=== PATIENT | female | born 1945 | race Caucasian/White ===

== ENCOUNTER 2017-03-30 13:10 | Emergency (ER) | payer OTHER ==
[~2017-03-30] VITALS: Ht 167.6 cm; Wt 97.7 kg
[~2017-03-30 13:10] MED LIST: ALPRAZOLAM1 MG PO; AMLODIPINE BESYL5 MG PO; ARTHROTEC 751 TABLET PO; ASPIRIN EC325 MG PO; ATORVASTATIN CA40 MG PO; BENTYL20 MG PO; CENTRUM COMPLE1 EACH PO; CIPRO500 MG PO; COMBIGAN O20 DROP/5 BOTH EYES; DICLOFENAC-MIS1 EAC3 PO; FENOFIBRATE200 M1 PO; FLAGYL500 MG PO; GLIMEPIRIDE2 MG PO; LEXAPRO10 MG PO; LISINOPRIL20 MG PO; LORTAB 5-325 M1 EACH PO; LUMIGAN 0.50 DROP/22 BOTH EYES; METFORMIN HCL500 MG PO; NORCO 5/3251 TABLET PO; PREDNISONE20 MG PO; TRAMADOL HCL50 MG PO; VENTOLIN HFA18 GM IH; ZOFRAN ODT4 MG PO; ZOLPIDEM TARTRA10 MG PO
[2017-03-30 13:16] VITALS: BP 139/109
[2017-03-30] MEDS ORDERED: INDOCIN50 MG PO (14:52)
[2017-03-30] MEDS ORDERED: PERCOCET 5/31 TABLET PO (14:52)
== END 2017-03-30 15:07 | disposition home or self-care (01) ==
LOC: EME 13:10
DX: M79.89 Other specified soft tissue disorders (principal); G89.29 Other chronic pain; M19.071 Primary osteoarthritis, right ankle and foot; E11.9 Type 2 diabetes mellitus without complications; I10 Essential (primary) hypertension; Z79.84 Long term (current) use of oral hypoglycemic drugs
CPT/HCPCS: 73610; 99281; 99283; J1885

== ENCOUNTER 2017-08-03 17:00 | Emergency (ER) | payer OTHER ==
[~2017-08-03] VITALS: Ht 167.6 cm; Wt 95.4 kg
[~2017-08-03 17:00] MED LIST changes: +INDOCIN50 MG PO; +PERCOCET 5/31 TABLET PO
[2017-08-03 17:29] LABS: HEMATOCRIT 46.9 % (36.0-46.0); MCH 32.3 PG (29.0-34.0); MCHC 34.5 G/DL (30.0-36.0); MCV 93.6 FL (83-99); MEAN PLAT.VOLUME 11.6 uM^3 (9.5-12.4); PLATELET COUNT 246 K/uL (156-360); RBC DIS.WIDTH-CV 15.2 % (11.8-14.6); RBC DIS.WIDTH-SD 51.9 % (39-53); RED BLOOD COUNT 5.01 M/uL (3.80-5.20); WHITE BLOOD COUNT 8.7 K/uL (4.1-10.2)
[2017-08-03 17:40] LABS: CHLORIDE 101 mEq/L (99-109); POTASSIUM 4.2 mEq/L (3.7-5.4); SODIUM 138 mEq/L (136-147)
[2017-08-03 17:42] LABS: GLUCOSE 245 mg/dL (70-99)
[2017-08-03 17:43] LABS: ANION GAP 15 MEQ/L (2-14)
[2017-08-03 17:44] LABS: TOTAL BILIRUBIN 0.3 mg/dL (0.0-1.0)
[2017-08-03 17:46] LABS: ALKALINE PHOSPHATASE 56 IU/L (3-129); GFR ESTIMATE (CALCULATED) 31 mL/min/
[2017-08-03 17:47] LABS: UREA NITROGEN (BUN) 21 mg/dL (9-23)
[2017-08-03 18:14] LABS: ADD MIUA? YES; BILIRUBIN NEGATIVE; BLOOD NEGATIVE; COLOR AMBER ((YELLOW)); GLUCOSE (STRIP) 50; KETONES 5; LEUKOCYTES SMALL; NITRITE NEGATIVE; PROTEIN (STRIP) 100; SPECIFIC GRAVITY 1.019 (1.000-1.030)
[2017-08-03 18:27] LABS: EPITHELIAL CELLS RARE /HPF; MUCUS NONE SEEN /LPF; RED BLOOD CELLS 0-5 /HPF (0-5)
[2017-08-03 18:28] LABS: BACTERIA 1+ /HPF; CASTS PRESENT /LPF; CRYSTALS NONE SEEN; HYALINE CASTS 0-5 /LPF; UCUL ADDED? YES
[2017-08-03 19:28] LABS: LIPASE 36 U/L (1.0-51.0)
[2017-08-03] MEDS ORDERED: CIPRO500 MG PO (22:42)
[2017-08-03] MEDS ORDERED: ZOFRAN ODT4 MG PO (22:42)
[2017-08-03 23:12] VITALS: BP 119/63
== END 2017-08-03 23:13 | disposition home or self-care (01) ==
LOC: EME 17:00
PROVIDERS: Emergency Medicine; Physician Assistant
DX: R11.2 Nausea with vomiting, unspecified (principal); E86.0 Dehydration; E87.2 Acidosis; N39.0 Urinary tract infection, site not specified; R00.0 Tachycardia, unspecified; I10 Essential (primary) hypertension; E78.5 Hyperlipidemia, unspecified; E11.9 Type 2 diabetes mellitus without complications; Z79.84 Long term (current) use of oral hypoglycemic drugs; Z88.0 Allergy status to penicillin; Z88.1 Allergy status to other antibiotic agents
CPT/HCPCS: 80053; 81003; 83605; 83690; 85027; 87040; 87086; 87502; 99281; 99285; J1956; J2405; J7030

== ENCOUNTER 2017-08-05 09:16 | Emergency (ER) | payer OTHER ==
[~2017-08-05] VITALS: Ht 167.6 cm; Wt 96.8 kg
[2017-08-05] MEDS ORDERED: NORCO 5/3251 TABLET PO (12:17)
[2017-08-05 12:45] VITALS: BP 125/79
[2017-08-10] MEDS ORDERED: ASPIRIN325 MG PO (15:39)
== END 2017-08-05 12:46 | disposition home or self-care (01) ==
LOC: EME 09:16
DX: M25.521 Pain in right elbow (principal); L40.50 Arthropathic psoriasis, unspecified; R25.1 Tremor, unspecified; R42 Dizziness and giddiness; I10 Essential (primary) hypertension; E78.5 Hyperlipidemia, unspecified; E11.9 Type 2 diabetes mellitus without complications; Z79.84 Long term (current) use of oral hypoglycemic drugs
CPT/HCPCS: 73080; 99281; 99284

== ENCOUNTER 2017-08-15 08:36 | Day surgery (SDC) | payer OTHER ==
[~2017-08-15] VITALS: Ht 167.6 cm; Wt 95.2 kg
[~2017-08-15 08:36] MED LIST changes: +ASPIRIN325 MG PO
[2017-08-15 09:35] VITALS: BP 127/59
[2017-08-15 10:38] LABS: POINT-OF-CARE METER ID UU14174212
[2017-08-15 16:53] LABS: POINT-OF-CARE METER ID UU13113675
== END 2017-08-16 02:35 | disposition home or self-care (01) ==
LOC: SDC 08:36 → 2SOUTH 19:40 → ENRESERV 19:54 → CANRESERV 19:54 → 2SOUTH 08-16 02:35
PROVIDERS: Podiatrist Foot & Ankle Surgery
DX: S92.251A Displaced fracture of navicular [scaphoid] of right foot, initial encounter for closed fracture (principal); M19.071 Primary osteoarthritis, right ankle and foot; M21.071 Valgus deformity, not elsewhere classified, right ankle; M21.6X1 Other acquired deformities of right foot; G89.29 Other chronic pain; E11.9 Type 2 diabetes mellitus without complications; I10 Essential (primary) hypertension; L40.59 Other psoriatic arthropathy; Z88.8 Allergy status to other drugs, medicaments and biological substances
CPT/HCPCS: 73600; 76000; 82948; 94640; C1713; G0378; J1100; J1170; J1885; J2250; J2405; J2765; J2795; J3010; S0020